=== PATIENT | female | born 1955 | race African-American/Black ===

== ENCOUNTER 2021-06-05 08:56 | Observation (INO) ==
[2021-06-05] MEDS ORDERED: NITROGLYCERIN SL 0.4 MG TABLET SL PRN (09:36)
[2021-06-05] MEDS ORDERED: ASPIRIN 325 MG TABLET PO STA (09:36)
[2021-06-05 09:50] LABS: Basophils % 0.6 % (0.0-0.8); Eosinophils # 0.1 10*3/uL (0.0-0.87); Eosinophils % 0.9 % (0.00-10.9); Hematocrit 39.3 VOL% (35.7-47.0); Hemoglobin 13.1 GM/DL (12.0-16.0); Immature Granulocytes % 0.3 %; Immature Granulocytes Absolute 0.02 #; Lymphocytes # 1.8 10*3/uL (1.4-4.0); Lymphocytes % 25.8 % (21.3-54.2); Mean Corpuscular HGB Conc 33.3 GM/DL (32-36); Mean Corpuscular Volume 78.3 FL (87-102); Mean Platelet Volume 10.1 FL (9.6-12.0); Monocytes % 7.7 % (1.7-12.7); Neutrophils % 64.7 % (38.7-73.9); Platelet Count 261 T/CUMM (130-400); Red Blood Count 5.02 MC/CUMM (3.8-5.5); Red Cell Distribution Width 16.8 % (9.3-17.3)
[2021-06-05 10:08] LABS: PT Patient Result 11.3 SECS (10.5-12.0)
[2021-06-05 10:08] LABS: Albumin 4.3 G/DL (3.4-5.0); Bilirubin,Total 0.7 MG/DL (0.20-1.00); Calcium 9.1 MG/DL (8.5-10.1); Osmolality,Calculated 272.2 MOS/KG (273-304); Potassium 2.6 MMOL/L (3.5-5.1); Total Protein 8.3 G/DL (6.4-8.2)
[2021-06-05] MEDS ORDERED: POTASSIUM CHLORIDE 20 MEQ TABLET PO STA (10:37)
[2021-06-05] MEDS ORDERED: GLUCAGON 1 MG VIAL IM PRN ×2 (11:34)
[2021-06-05] MEDS ORDERED: DEXTROSE 50% 25 GM/50 ML VIAL IV PRN (11:34)
[2021-06-05] MEDS ORDERED: MAGNESIUM SULF RIDER 4 GM/100 ML PREMIX IV PRN (11:38)
[2021-06-05] MEDS ORDERED: MAGNESIUM SULF RIDER 2 GM/50 ML PREMIX IV PRN (11:38)
[2021-06-05] MEDS ORDERED: hydrALAZINE 20 MG/1 ML VIAL IV PRN (11:39)
[2021-06-05] MEDS ORDERED: DEXTROSE 50% 25 GM/50 ML SYRINGE IV PRN (11:41)
[2021-06-05] MEDS: ENOXAPARIN 40 MG/0.4 ML SYRINGE SUBCUT SCH (12:21)
[2021-06-05] MEDS ORDERED: KETOROLAC 30 MG/1 ML VIAL IV ONE (13:24)
[2021-06-05] MEDS: INSULIN LISPRO 100 UNIT/ML SUBCUT SCH ×2 (17:28→22:31)
[2021-06-05] MEDS: METOPROLOL SUCCINATE XL 25 MG TABLET PO SCH (17:39)
[2021-06-05] MEDS ORDERED: INFLUENZA VIRUS VACCINE 0.5 ML SYRINGE IM ONE (18:38)
[2021-06-05] MEDS ORDERED: MECLIZINE 25 MG TABLET PO PRN (21:23)
[2021-06-05] MEDS: NAPROXEN 500 MG TABLET PO SCH (22:32)
[2021-06-05] MEDS: ATORVASTATIN 20 MG TABLET PO SCH (22:32)
[2021-06-05] MEDS: NYSTATIN POWDER 15 GM BOTTLE TOP SCH (22:32)
[2021-06-05] MEDS: PREGABALIN 25 MG CAPSULE PO SCH (22:32)
[2021-06-05] MEDS: GABAPENTIN 400 MG CAPSULE PO SCH (22:32)
[2021-06-05] MEDS: amLODIPine 10 MG TABLET PO SCH (22:33)
[2021-06-06 05:52] LABS: Thyroid Stimulating Hormone 1.71 uIU/ml (0.358-3.74)
[2021-06-06 07:48] LABS: Calcium 9.5 MG/DL (8.5-10.1); Potassium 2.6 MMOL/L (3.5-5.1)
[2021-06-06] MEDS: INSULIN LISPRO 100 UNIT/ML SUBCUT SCH ×4 (08:54→21:39)
[2021-06-06] MEDS: POTASSIUM CHLORIDE RIDER 10 MEQ/100 ML PREMIX IV PRN ×5 (08:57→15:27)
[2021-06-06] MEDS ORDERED: amLODIPine 10 MG TABLET PO SCH (09:00)
[2021-06-06] MEDS ORDERED: POTASSIUM CHLORIDE 20 MEQ TABLET PO ONE (09:00)
[2021-06-06] MEDS: POTASSIUM CHLORIDE 20 MEQ TABLET PO SCH (11:30)
[2021-06-06] MEDS: GABAPENTIN 400 MG CAPSULE PO SCH ×2 (11:30→21:37)
[2021-06-06] MEDS: NAPROXEN 500 MG TABLET PO SCH ×2 (11:30→21:37)
[2021-06-06] MEDS: PANTOPRAZOLE 40 MG TABLET PO SCH (11:30)
[2021-06-06] MEDS: NYSTATIN POWDER 15 GM BOTTLE TOP SCH ×2 (11:30→22:16)
[2021-06-06] MEDS: ASPIRIN EC 81 MG TABLET PO SCH (11:30)
[2021-06-06] MEDS: METOPROLOL SUCCINATE XL 25 MG TABLET PO SCH (11:30)
[2021-06-06] MEDS: clonazePAM 0.5 MG TABLET PO SCH (11:30)
[2021-06-06] MEDS: PREGABALIN 25 MG CAPSULE PO SCH ×2 (11:30→21:36)
[2021-06-06] MEDS: POTASSIUM CHLORIDE 10 MEQ TABLET PO SCH (11:40)
[2021-06-06] MEDS: ENOXAPARIN 40 MG/0.4 ML SYRINGE SUBCUT SCH (14:07)
[2021-06-06] MEDS: amLODIPine 10 MG TABLET PO SCH (21:37)
[2021-06-06] MEDS: ATORVASTATIN 20 MG TABLET PO SCH (21:37)
[2021-06-06] MEDS: traMADol 50 MG TABLET PO PRN (22:15)
[2021-06-06] MEDS: POTASSIUM CHLORIDE 20 MEQ TABLET PO PRN (22:16)
[2021-06-07] MEDS: POTASSIUM CHLORIDE 20 MEQ TABLET PO PRN ×2 (00:14→02:25)
[2021-06-07] MEDS: METOPROLOL SUCCINATE XL 25 MG TABLET PO SCH (09:55)
[2021-06-07] MEDS: PANTOPRAZOLE 40 MG TABLET PO SCH (09:55)
[2021-06-07] MEDS: clonazePAM 0.5 MG TABLET PO SCH (09:55)
[2021-06-07] MEDS: POTASSIUM CHLORIDE 10 MEQ TABLET PO SCH (09:56)
[2021-06-07] MEDS: traMADol 50 MG TABLET PO PRN (09:56)
[2021-06-07] MEDS: ASPIRIN EC 81 MG TABLET PO SCH (10:07)
[2021-06-07] MEDS: INSULIN LISPRO 100 UNIT/ML SUBCUT SCH ×2 (10:07→12:36)
[2021-06-07] MEDS: NYSTATIN POWDER 15 GM BOTTLE TOP SCH (10:07)
[2021-06-07] MEDS: PREGABALIN 25 MG CAPSULE PO SCH (10:08)
[2021-06-07] MEDS: POTASSIUM CHLORIDE 20 MEQ TABLET PO SCH (10:09)
[2021-06-07] MEDS: GABAPENTIN 400 MG CAPSULE PO SCH (10:11)
[2021-06-07] MEDS: NAPROXEN 500 MG TABLET PO SCH (10:11)
[2021-06-07 12:34] VITALS: BP 149/83
[2021-06-08] MEDS ORDERED: ERGOCALCIFEROL 50,000 UNIT CAPSULE PO SCH (21:23)
== END 2021-06-07 15:17 | disposition home or self-care (01) ==
LOC: N.ED 08:56 → N.EDINP 08:56 → SUATTDRO 11:34 → N.TELEN 18:11
PROVIDERS: ADMIT Internal Medicine; ATTEND Emergency Medicine